=== PATIENT | female | born 1980 | race Caucasian/White ===

== ENCOUNTER 2019-01-26 19:04 | Emergency (ER) | payer OTHER ==
[~2019-01-26] VITALS: Ht 154.9 cm; Wt 54.4 kg
[2019-01-26 19:23] LABS: URINE BILIRUBIN NEGATIVE (Negative); URINE BLOOD 2+ (Negative); URINE CLARITY CLEAR; URINE COLOR YELLOW; URINE GLUCOSE-RANDOM NEGATIVE (Negative); URINE KETONES NEGATIVE (Negative); URINE LEUKOCYTES-REFLEX 1+ (Negative); URINE NITRITE-REFLEX NEGATIVE (Negative); URINE PROTEIN TRACE (Negative); URINE SPECIFIC GRAVITY 1.025 (1.005-1.030); URINE UROBILINOGEN 0.2 E.U./dl (0.2-1.0)
[2019-01-26 19:34] LABS: SQUAMOUS 0-3 Few /LPF (0-3); URINE RBC 0-2 Rare /HPF (0-2); URINE WBC-REFLEX >25 Many /HPF (0-5)
[2019-01-26 19:35] LABS: BACTERIA-REFLEX 1-9 Few /HPF (None Seen); CASTS None Seen /LPF (None Seen); CRYSTALS None Seen /LPF (None Seen)
[2019-01-26] MEDS ORDERED: BACTRIM DS TAB1 EACH PO (19:38)
[2019-01-26] MEDS ORDERED: PYRIDIUM200 MG PO (20:00)
[2019-01-26 20:13] VITALS: BP 112/66
== END 2019-01-26 20:13 | disposition home or self-care (01) ==
LOC: M.ERS 19:04
PROVIDERS: Nurse Practitioner Family
DX: N39.0 Urinary tract infection, site not specified (principal); Z88.1 Allergy status to other antibiotic agents; Z88.6 Allergy status to analgesic agent

== ENCOUNTER → 2020-12-22 | Day surgery (SDC) | payer OTHER ==
[~2020-12-22] MED LIST: BACTRIM DS TAB1 EACH PO; IBUPROFEN 800800 M1 PO; PYRIDIUM200 MG PO; TYLENOL325 MG PO
--- NOTE | ~2020-12-22 | OP ---
[address] [address] OPERATIVE REPORT Name: RADHA BROWN Room: [facility].#: [id number] Admission: 12/22/20 Attend Phys: Vijay Bird DO Discharge: Date of : 76 Report #: [id number] THIS REPORT FOR: cc: Herman Eason Adam J DO Kesl, James B. DO ~ DOC #: [id number] Vijay Bird DO DATE OF SURGERY: 12/22/2020 PREOPERATIVE DIAGNOSIS: Left cubital tunnel syndrome. POSTOPERATIVE DIAGNOSIS: Left cubital tunnel syndrome. PROCEDURE: Left cubital tunnel release. SURGEON: Vijay Bird DO ANESTHESIOLOGIST: Chaparro Shields DO ANESTHESIA: General. ANTIBIOTICS: Ancef IV. INTRAVENOUS FLUIDS: 800 mL lactated Ringer's. BLOOD LOSS: 20 mL. COMPLICATIONS: None. SPECIMENS: None. DRAINS: None. CONDITION: The patient is stable to PACU. TOURNIQUET TIME: 42 minutes at 250 mmHg. INDICATIONS FOR PROCEDURE: The patient has left cubital tunnel syndrome as evidenced by physical exam findings and subjective complaints and EMG. She wished to have cubital tunnel release. I explained to her the plan of surgery with risks and complications including reasoning for release and no planned transposition. She acknowledged, accepted, and gave consent to proceed. DESCRIPTION OF PROCEDURE: I marked the left upper extremity in the presence of operative team members and everyone agreed correct. She was taken back to the [address] [address] OPERATIVE REPORT Name: RADHA BROWN Room: [facility].#: [id number] Admission: 12/22/20 Attend Phys: Vijay Bird DO Discharge: Date of : 76 Report #: [id number] operative suite, placed on the table supine. General anesthetic administered. A well-padded tourniquet placed proximally on the left upper extremity, which was then sterilely prepped and draped in standard fashion. A time-out was performed indicating correct patient, procedure, site, and antibiotics and all team members agreed. We marked out our incision, went up with tourniquet and scalpel through skin. Careful dissection with full thickness down to the fascia. The nerve was palpated the whole time, released the roof over this, making sure to cheat on the posterior aspect so as to not have volar subluxation. We then fully released the nerve proximally and distally, making sure to protect the nerve branches appropriately. The nerve was quite hypertrophied and even dusky in appearance from long-term compression. Once we had a full release, we then went down the tourniquet. Hemostasis was maintained. The nerve was slow in regards to the blood flow, but after being down tourniquet time observing, did appear better in its color. Nerve was fully released and taking the elbow through motion, the nerve was not subluxing. We then irrigated with normal saline and closed with 2-0 Monocryl buried deeper subQ and then a running 3-0 Monocryl for skin with Dermabond glue over. Debriefing performed, confirming procedure, blood loss and all counts were correct and final and team members agreed. Sterile dressings applied. She was extubated and taken to PACU stable. POSTOPERATIVE COURSE AND EVALUATION: Spoke with her significant other and daughter, addressed questions, they had a satisfaction. They were very thankful for my time and efforts. She was resting in PACU with stable vital signs, pain controlled, neurovascularly intact in the upper extremity. Follow up will be in 2 weeks or sooner if need be. COVID protocol followed at all times. DO RENETTA Oliver/OSKAR/LACI By: [id number] Bird DO /nt
[2020-12-22 12:24] LABS: MCH 31.5 pg (26.0-34.0); MCHC 33.4 g/dL (28.0-37.0); MCV 94.2 fL (80.0-100.0); RBC 4.14 mil/uL (4.20-5.00); WBC 6.9 thou/uL (4.0-11.0)
[2020-12-22 12:53] LABS: CALCIUM 9.6 mg/dL (8.5-10.1); CREATININE 0.7 mg/dL (0.6-1.3); POTASSIUM 3.7 mmol/L (3.5-5.1)
[2020-12-22 12:56] LABS: ALBUMIN 4.4 g/dL (3.4-5.0); TOTAL BILIRUBIN 0.5 mg/dL (<0.1-1.0); TOTAL PROTEIN 8.2 g/dL (6.4-8.2)
== END | disposition home or self-care (01) ==
LOC: M.SUR 06:14
PROVIDERS: ATTEND Orthopaedic Surgery
DX: G56.22 Lesion of ulnar nerve, left upper limb (principal); Z98.890 Other specified postprocedural states; Z79.899 Other long term (current) drug therapy; Z20.822 Contact with and (suspected) exposure to COVID-19; Z88.8 Allergy status to other drugs, medicaments and biological substances

== ENCOUNTER 2021-02-26 10:37 | Emergency (ER) | payer OTHER ==
[~2021-02-26] VITALS: Ht 154.9 cm; Wt 51.7 kg
[2021-02-26] MEDS ORDERED: NEURONTIN 300M300 M2 PO (10:48)
[2021-02-26] MEDS ORDERED: ONZETRA XSAIL11 MG NARES (11:10)
[2021-02-26 11:28] VITALS: BP 112/75
== END 2021-02-26 11:29 | disposition home or self-care (01) ==
LOC: M.ERS 10:37
DX: G43.909 Migraine, unspecified, not intractable, without status migrainosus (principal); Z88.1 Allergy status to other antibiotic agents; Z88.6 Allergy status to analgesic agent; Z90.710 Acquired absence of both cervix and uterus

== ENCOUNTER → 2021-08-04 | Outpatient (CLI) | payer OTHER ==
[~2021-08-04] MED LIST changes: +EFFEXOR XR75 MG PO; +HYDROCODON-ACE1 EAC7 PO; +MOBIC7.5 MG PO; +NEURONTIN 300M300 M2 PO; +ONZETRA XSAIL11 MG NARES
== END ==
LOC: M.MRI 08:01
PROVIDERS: ATTEND Family Medicine
DX: G43.009 Migraine without aura, not intractable, without status migrainosus (principal)

== ENCOUNTER 2021-08-16 14:27 | Emergency (ER) | payer OTHER ==
[~2021-08-16] VITALS: Ht 154.9 cm; Wt 54.4 kg
[~2021-08-16 14:27] MED LIST changes: -EFFEXOR XR75 MG PO; -HYDROCODON-ACE1 EAC7 PO; -MOBIC7.5 MG PO
[2021-08-16] MEDS ORDERED: EFFEXOR XR75 MG PO (14:34)
[2021-08-16 15:33] LABS: INFLUENZA A ANTIGEN Negative (Negative); INFLUENZA B ANTIGEN Negative (Negative)
--- NOTE | 2021-08-16 15:35 | EKG ---
[place] [address] ELECTROCARDIOGRAM REPORT Name: RADHA BROWN Room: [facility]#: [id number] Admission: 08/16/21 Attend Phys: Discharge: Date of : 76 Date of Service: 08/16/21 1430 Report #: [id number] THIS REPORT FOR: //name// [facility] [place] ED Test Date: 2021-08-16 Test Time: 14:30:31 Pat Name: RADHA BROWN Department: Room: Gender: [employer] Operator: : 1980 Requested By: Deni Treviño Order Number: [id number] MD: Juan Braswell Measurements Intervals [place] Rate: 85 P: 68 SC: 137 QRS: 58 QRSD: 83 T: 45 QT: 351 QTc: 418 Interpretive Statements Sinus rhythm No previous ECG available for comparison Electronically Signed On 08-16-2021 15:34:58 [employer] by Juan Braswell [email or web address] <ELECTRONICALLY SIGNED> By: Juan Braswell MD, [facility] 08/16/21 1534 1430 1430 Juan Braswell MD, FACC /EPI
[2021-08-16 15:44] LABS: ABSOLUTE BASOPHILS 0.1 thou/uL (0.0-0.2); ABSOLUTE EOSINOPHILS 0.2 thou/uL (0.0-0.7); ABSOLUTE LYMPHOCYTES 2.1 thou/uL (0.8-5.3); ABSOLUTE MONOCYTES 0.8 thou/uL (0.0-1.2); ABSOLUTE NEUTROPHILS 5.5 thou/uL (1.6-8.1); BASOPHILS 0.6 %; EOSINOPHILS 2.5 %; HEMATOCRIT 37.3 % (37.0-47.0); HEMOGLOBIN 12.5 gm/dL (12.0-15.0); MCH 31.8 pg (26.0-34.0); MCHC 33.5 g/dL (28.0-37.0); MONOCYTES 8.8 %; MPV 7.3 fl. (7.2-11.1); NUCLEATED RBCS 0 /100WBC; PLATELET COUNT* 280 thou/uL (150-400); POLYS 64.1 %; RBC 3.93 mil/uL (4.20-5.00); RDW-CV 13.2 % (10.5-14.5); WBC 8.5 thou/uL (4.0-11.0)
[2021-08-16 16:02] LABS: CALCIUM 8.5 mg/dL (8.5-10.1); CREATININE 0.8 mg/dL (0.6-1.3); POTASSIUM 3.7 mmol/L (3.5-5.1)
[2021-08-16 16:14] LABS: ALBUMIN 3.8 g/dL (3.4-5.0); MAGNESIUM 2.1 mg/dL (1.8-2.4); TOTAL BILIRUBIN 0.2 mg/dL (<0.1-1.0); TOTAL PROTEIN 6.8 g/dL (6.4-8.2)
[2021-08-16 16:52] LABS: URINE BILIRUBIN NEGATIVE (Negative); URINE BLOOD NEGATIVE (Negative); URINE CLARITY SL CLOUDY; URINE COLOR YELLOW; URINE GLUCOSE-RANDOM NEGATIVE (Negative); URINE KETONES NEGATIVE (Negative); URINE LEUKOCYTES-REFLEX NEGATIVE (Negative); URINE NITRITE-REFLEX NEGATIVE (Negative); URINE PROTEIN NEGATIVE (Negative); URINE SPECIFIC GRAVITY 1.015 (1.005-1.030); URINE UROBILINOGEN 0.2 E.U./dl (0.2-1.0)
[2021-08-16 16:59] LABS: AMP/METHAMP Negative (Negative); BARBITURATES Negative (Negative); BENZODIAZEPINES Negative (Negative); COCAINE Negative (Negative); METHADONE Negative (Negative); OPIATES Negative (Negative); PCP Negative (Negative); THC POSITIVE (Negative)
[2021-08-16 17:00] LABS: AMORPHOUS PHOSPHATES Moderate /LPF (None Seen); AMORPHOUS URATES Moderate /LPF (None Seen); BACTERIA-REFLEX None Seen /HPF (None Seen); CASTS None Seen /LPF (None Seen); CRYSTALS None Seen /LPF (None Seen); SQUAMOUS 0-3 Few /LPF (0-3); URINE RBC None Seen /HPF (0-2); URINE WBC-REFLEX None Seen /HPF (0-5)
[2021-08-16] MEDS ORDERED: MOBIC7.5 MG PO (17:37)
[2021-08-16] MEDS ORDERED: HYDROCODON-ACE1 EAC7 PO (17:38)
[2021-08-16 17:52] VITALS: BP 145/76
== END 2021-08-16 17:53 | disposition home or self-care (01) ==
LOC: M.ERS 14:27
PROVIDERS: Family Medicine; Nurse Practitioner Family
DX: R09.1 Pleurisy (principal); Z20.822 Contact with and (suspected) exposure to COVID-19; Z90.710 Acquired absence of both cervix and uterus; Z79.899 Other long term (current) drug therapy; Z88.6 Allergy status to analgesic agent; Z88.1 Allergy status to other antibiotic agents